=== PATIENT | male | born 1990 | race Caucasian/White ===

== ENCOUNTER 2021-12-31 15:39 | Emergency (ER) | payer BC, SELFPAY ==
--- NOTE | ~2021-12-31 | XR_ITS ---
EXAMINATION: XR chest 1V portable DATE: 12/31/2021 17:15 INDICATION: Weakness, emesis, nausea, vomiting and diarrhea. TECHNIQUE: frontal view of the chest was obtained. COMPARISON: None FINDINGS: The lungs are clear with no focal airspace opacities, pulmonary edema, pleural effusion or pneumothor ax. The cardiomediastinal silhouette is normal. Visualized bones and soft tissues are unremarkable. IMPRESSION: 1. Normal chest radiograph. Reviewed, dictated and finalized at location A. [employer] IMPRESSION: 1. Normal chest radiograph.
[2021-12-31 15:44] VITALS: BP 104/55; PULSE 106; RESP 16; TEMP 38; O2SAT 99
--- NOTE | 2021-12-31 16:54 | ED.NAVMDI ---
HPI - Nausea/Vomiting/Diarrhea General Chief complaint: Nausea/Vomiting/Diarrhea Stated complaint: vomiting Time Seen by Provider: 12/31/21 16:36 Source: patient Mode of arrival: ambulatory Limitations: no limitations History of Present Illness HPI Narrative: This is a 31 year old male who presents for evaluation of nausea, vomiting and diarrhea. He developed nausea, vomiting and diarrhea yesterday evening after eating. He has presented to ER with his , who has same symptoms. He also reports body aches and joint pain. He denies any sick contacts other than his . Denies blood in stool. Related Data Allergies Allergy/AdvReac Type Severity Reaction Status Date / Time No Known Allergies Allergy Verified 12/31/21 16:31 Review of Systems Constitutional: Constitutional: Reports chills, Reports fatigue and Reports weakness ENT: Denies sore throat Cardiovascular: Cardiovascular: Denies chest pain Respiratory: Respiratory: Denies cough and Denies dyspnea Gastrointestinal: Gastrointestinal: Denies abdominal pain, Reports diarrhea, Reports nausea and Reports vomiting Musculoskeletal: Musculoskeletal: Reports myalgias PMFSH Past Medical History Medical History (Updated 12/31/21 @ 19:50 by Elva Alvarado MD) No significant medical problems Surgical History Surgical History (Updated 12/31/21 @ 16:55 by Elva Alvarado MD) No pertinent past surgical history Social History Social History (Updated 12/31/21 @ 16:55 by Elva Alvarado MD) Smoking status: Never smoker Exam Const: General: no acute distress and alert Orientation/consciousness: patient oriented x3 HENMT: Head: normocephalic and atraumatic Face and sinus: sinuses nontender and face symmetric Mouth: Yes Normal oral and palatal mucosa present, Yes lip normal, Yes tongue normal, Yes oropharynx normal and Yes moist mucous membranes Throat: posterior oropharynx normal Eyes: EOM: EOMs intact bilaterally Resp: Effort & Inspection: normal respiratory effort and no retractions Auscultation: clear to auscultation bilaterally Cardio: Rate: regular rate Rhythm: regular rhythm Heart sounds: no murmurs GI: GI Palp: Yes Soft to palpation, No Tenderness to palpation present (GI) and No Guarding due to palpation present (GI) Auscultation: normal bowel sounds Skin: General skin exam: normal color Rashes: no rashes Neuro: General: patient oriented x3, moves all extremities and CN's II-XI intact bilaterally Extrem: General: normal to inspection Psych: Mental Status: mental status grossly normal Affect: normal affect Course Reevaluation(s) Reevaluation #1: Patient states he feels much better. He was able to tolerate PO. Labs are unremarkable. Stable for discharge. Date: 12/31/21 Time: 19:49 Vital Signs Vital signs: Vital Signs Temperature 100.4 F H 12/31/21 15:44 Pulse Rate 106 H 12/31/21 15:44 Respiratory Rate 16 12/31/21 15:44 Blood Pressure 104/55 L 12/31/21 15:44 Pulse Oximetry 99 12/31/21 15:44 Temperature 100.4 F H 12/31/21 15:44 Pulse Rate 73 12/31/21 18:54 Respiratory Rate 14 12/31/21 18:54 Blood Pressure 98/59 L 12/31/21 18:54 Pulse Oximetry 97 12/31/21 18:54 MDM - Nausea/Vomiting/Diarrhea Lab Data Attestation: I reviewed the patient's lab results. Result diagrams: 12/31/21 17:06 12/31/21 17:06 Labs: Lab Results 12/31/21 12/31/21 Range/Units 17:06 17:06 WBC 9.4 (4.5-10.0) K/mm3 RBC 4.80 (4.6-6.20) M/mm3 Hgb 14.7 (14.0-18.0) g/dL Hct 42.3 (42.0-52.0) % MCV 88.1 (80-100) fl MCH 30.6 (26-34) pg MCHC 34.8 (32-36) g/dl RDW 12.1 (11.5-14.5) % Plt Count 144 L (150-375) k/mm3 MPV 10.9 H (7.4-10.4) fl Immature Gran % (Auto) 0.4 (0-0.5) % Neut % (Auto) 89.1 H (45.5-73.1) % Lymph % (Auto) 4.5 L (18.3-44.2) % Sampson % (Auto) 5.9 (2.6-8.5) % Eos % (Auto) 0.0 (0-4.4) % Baso % (Auto
[2021-12-31] MEDS: ONDANSETRON INJ 4 MG/2 ML VIAL IV PUSH (17:02)
[2021-12-31] MEDS: LACTATED RINGERS 1,000 ML 999 ML IV CONT ×2 (17:02→18:10)
[2021-12-31] MEDS: KETOROLAC 30 MG/ML VIAL (*BKC) IV PUSH (17:02)
[2021-12-31 17:18] LABS: Basophils Percent Auto 0.1 % (0.2-1.2); Hematocrit 42.3 % (42.0-52.0); Hemoglobin 14.7 g/dL (14.0-18.0); Immature Granulocyte Absolute 0.04 K/mm3 (0.00-0.031); Immature Granulocyte Percent A 0.4 % (0-0.5); Immature Platelet Fraction Pct 5.5 % (0.9-11.2); Lymphocytes Absolute Auto 0.42 K/mm3 (0.9-3.2); Lymphocytes Percent Auto 4.5 % (18.3-44.2); Mean Corpuscular HGB Conc 34.8 g/dl (32-36); Mean Corpuscular Hemoglobin 30.6 pg (26-34); Mean Corpuscular Volume 88.1 fl (80-100); Mean Platelet Volume 10.9 fl (7.4-10.4); Monocytes Absolute Auto 0.6 K/mm3 (0.1-0.6); Monocytes Percent Auto 5.9 % (2.6-8.5); Neutrophils Absolute Auto 8.4 K/mm3 (1.3-6.7); Neutrophils Percent Auto 89.1 % (45.5-73.1); Platelet Count Result 144 k/mm3 (150-375); Red Cell Distribution Width 12.1 % (11.5-14.5); White Blood Count 9.4 K/mm3 (4.5-10.0)
[2021-12-31 17:30] LABS: Alanine Aminotransferase 19 U/L (4-50); Albumin Level 4.3 g/dL (3.5-5.1); Alkaline Phosphatase 58 U/L (38-126); Anion Gap 8 mmol/L (8-16); Aspartate Amino Transferase 26 U/L (17-59); Bilirubin,Total 0.8 mg/dL (0.2-1.3); Blood Urea Nitrogen 20 mg/dL (9-20); Calcium 8.7 mg/dL (8.4-10.2); Carbon Dioxide 25 mmol/L (22-30); Chloride 103 mmol/L (98-107); Estimated CRCL calculation 93 ml/min; Estimated Glomerular Filt Rate > 60; Glucose 115 mg/dL (65-110); Lipase 33 U/L (23-300); Potassium 3.7 mmol/L (3.4-5.0); Sodium 136 mmol/L (137-145)
[2021-12-31 18:02] VITALS: BP 108/46; PULSE 91
[2021-12-31 18:03] VITALS: BP 104/58; BP 88/55; PULSE 125; PULSE 98
[2021-12-31 18:54] VITALS: BP 98/59; PULSE 73; RESP 14; O2SAT 97
[2021-12-31 20:06] VITALS: BP 97/58; PULSE 77; RESP 16; TEMP 37.3; O2SAT 98
== END 2021-12-31 20:07 | disposition home or self-care (01) ==
PROVIDERS: Emergency Provider General Practice
DX: K52.9 Noninfective gastroenteritis and colitis, unspecified (principal); E86.0 Dehydration
CPT/HCPCS: 36415; 71045; 80053; 83690; 85025; 85055; 87804; 96361; 96374; 96375; 99284; J1885; J2405; J7120